=== PATIENT | female | born 1995 | race Caucasian/White ===

== ENCOUNTER → 2023-08-10 17:29 | Outpatient (REF) | payer BC, SELFPAY | LOC: PNTC 17:29 | PROVIDERS: ATTENDING PHYSICIAN Obstetrics & Gynecology | DX: O99.210 Obesity complicating pregnancy, unspecified trimester (principal) | CPT/HCPCS: 76805 ==

== ENCOUNTER → 2023-09-09 15:24 | Outpatient (REF) | payer BC, SELFPAY | LOC: PNTC 15:24 | PROVIDERS: ATTENDING PHYSICIAN Obstetrics & Gynecology | DX: O99.210 Obesity complicating pregnancy, unspecified trimester (principal) | CPT/HCPCS: 76811 ==

== ENCOUNTER → 2023-10-21 16:06 | Outpatient (REF) | payer BC, SELFPAY | LOC: PNTC 16:06 | PROVIDERS: ATTENDING PHYSICIAN Obstetrics & Gynecology | DX: O99.210 Obesity complicating pregnancy, unspecified trimester (principal) | CPT/HCPCS: 76816 ==

== ENCOUNTER → 2023-11-09 08:23 | Outpatient (REF) | payer BC, SELFPAY ==
--- NOTE | 2023-11-09 09:33 | PN.DIAED06 ---
Meal Plan - Gestational
- Breakfast
Gestational Diabetes Meal Plan Name: 1800 calories
Breakfast - Total Carbohydrate (grams): 30
Breakfast - Starch Carbohydrate: 1
Breakfast - Fruit Carbohydrate: 0
Breakfast - Milk Carbohydrate: 1
Breakfast - Nonstarchy Vegetables: Yes
Breakfast - Meat/Protein: 1
Breakfast - Fat: 2
- Morning Snack
Morning Snack - Total Carbohydrate (grams): 30
Morning Snack - Starch Carbohydrate: 1
Morning Snack - Fruit Carbohydrate: 0
Morning Snack - Milk Carbohydrate: 1
Morning Snack - Nonstarchy Vegetables: Yes
Morning Snack - Meat/Protein: 0.5
Morning Snack - Fat: 0
- Lunch
Lunch - Total Carbohydrate (grams): 45
Lunch - Starch Carbohydrate: 2
Lunch - Fruit Carbohydrate: 1
Lunch - Milk Carbohydrate: 0
Lunch - Nonstarchy Vegetables: Yes
Lunch - Meat/Protein: 2
Lunch - Fat: 1
- Afternoon Snack
Afternoon Snack - Total Carbohydrate (grams): 30
Afternoon Snack - Starch Carbohydrate: 1
Afternoon Snack - Fruit Carbohydrate: 1
Afternoon Snack - Milk Carbohydrate: 0
Afternoon Snack - Nonstarchy Vegetables: Yes
Afternoon Snack - Meat/Protein: 1
Afternoon Snack - Fat: 0
- Dinner
Dinner - Total Carbohydrate (grams): 45
Dinner - Starch Carbohydrate: 2
Dinner - Fruit Carbohydrate: 0
Dinner - Milk Carbohydrate: 1
Dinner - Nonstarchy Vegetables: Yes
Dinner - Meat/Protein: 2
Dinner - Fat: 2
- Evening Snack
Evening Snack - Total Carbohydrate (grams): 30
Evening Snack - Starch Carbohydrate: 1
Evening Snack - Fruit Carbohydrate: 0
Evening Snack - Milk Carbohydrate: 1
Evening Snack - Nonstarchy Vegetables: Yes
Evening Snack - Meat/Protein: 1
Evening Snack - Fat: 1
--- NOTE | 2023-11-12 08:45 | PN.DIAED02 ---
Referral
Referred For: Gestational Diabetes Self-Management Training
PHI Release Authorization Form Signed: Yes
Care Plan
- Education Needs
Patient Education Needs: Preconception care//gestational diabetes management
Recommended Diabetes Training Program based on assessment: Gestational Diabetes Management
- Plan of Care
Plan of Care:
11/09/23- Met with Nathalie for new diagnosis GDM. EDC [birth year] male, 18 mo. son at home. Discussed what is happening in her body and importance to monitor BS, eat healthy and increase activity. Provided with and instructions given on Contour NExt Gen
glucometer, excellent return demonstration with result of 81 mg/dl 1 hr post B of 1 slice wheat toast w/PB, yogurt,and 2 chicken sausage. Aware to test FBS and 2 hr PP as well as expected results: FBS <95 mg/dl and 2 hr pp <120 mg/dl. Log sheet
provided for her to record her results. She is aware to call Mariajose at [facility] every Wednesday with readings. Aware if checking 1 hr pp, result should be <140 mg/dl and to noemy that on the log sheet. She does have Mariajose's phone number.
Briefly discussed possibility of insulin as develops. Discussed macronutrients, CHO, protein and fat and impact each has on BS. Reviewed reading food labels and importance of consuming proper serving sizes. 5'4', 180# (pre ).
Provided with 1800 kelle ADA GDM meal plan and reviewed current eating preferences. To consume protein with each meal and snack, handout of options provided. 'Choose your Foods' booklet given and referenced. She does not currently engage in exercise,
states very active in day to day with her toddler. RX for test strips and lancets placed by REBA Beyer at [facility]. Phone number provided for follow up questions.
== END ==
LOC: DES 08:23
PROVIDERS: ATTENDING PHYSICIAN Obstetrics & Gynecology
DX: O24.419 Gestational diabetes mellitus in pregnancy, unspecified control (principal)
CPT/HCPCS: 99078

== ENCOUNTER → 2023-11-30 15:00 | Outpatient (REF) | payer BC, SELFPAY | LOC: PNTC 15:00 | PROVIDERS: ATTENDING PHYSICIAN Obstetrics & Gynecology | DX: O99.210 Obesity complicating pregnancy, unspecified trimester (principal) | CPT/HCPCS: 76816 ==

== ENCOUNTER 2023-12-21 16:33 | Emergency (ER) | payer BC, SELFPAY ==
[2023-12-21 16:35] VITALS: BP 113/89
[2023-12-21 16:56] VITALS: BP 125/73
[2023-12-21 17:00] VITALS: BP 113/67
[2023-12-21 17:35] VITALS: BMI 34.6
--- NOTE | 2023-12-21 17:40 | EDRN ---
Received patient on stretcher with c/o palpitations. Patient is 35 weeks . Denies dizziness and chest pain. Patient stated that the baby is moving constantly.
[2023-12-21 18:00] VITALS: BP 112/57
--- NOTE | 2023-12-21 18:02 | ED.GENMED ---
History of Present Illness
General
Chief Complaint: Heart Rate Problem
Source: patient
Exam Limitations: none
Time Seen by Provider: 12/21/23 17:31
Nursing documentation reviewed up to this point in time: agreed with
Travel History
Have you had any contact with someone who has COVID-19?: No
Do you have any symptoms of coronavirus? Fever > 100 degrees, chills, cough, shortness of breath, sore throat, loss of taste or smell, muscle aches, or headache?: No
History of Present Illness
History of Present Illness:
28 yr old female approx 35 wks with an estimated due date of January 24 presents to the ER complaining of palpitations. Patient reports she has had constant fluttering/palpitation feeling in her chest since Wednesday. She always feels that her
heart is skipping a beat. She denies real shortness of breath with it. She denies any vaginal bleeding / cramping. She reports normal movements.
Review of Systems
Review of Systems
Allergies reviewed?: Yes
All Other Systems: ROS reviewed and negative except as documented in HPI and ROS
Constitutional: Reports no symptoms; Denies fever, fatigue or chills
EENT: Reports no symptoms
Respiratory: Denies trouble breathing
Cardiac: Reports palpitations; Denies chest pain, diaphoresis or syncope
ABD/GI: Reports no symptoms
: Reports no symptoms
Musculoskeletal: Reports no symptoms
Skin: Reports no symptoms
Neurological: Reports no symptoms
Psychiatric: Reports no symptoms
Phy Exam
General Physical Exam
General Presentation: no apparent distress
General age: appears stated age
General Skin: warm and dry
General Habitus: normal
General Mental: alert
General Hydration: appears well hydrated
Cardiovascular Exam
Cardiovascular Exam: tachycardia
Pulmonary Exam
Pulmonary Exam: lungs clear and no respiratory distress
Neurological Exam
Neurological Exam: alert and oriented x3
Musculoskeletal Exam
Musculoskeletal Exam: full ROM
Skin Exam
Skin Exam: normal color and warm/dry
Psychiatric Exam
Psychiatric Exam: normal mood/affect
Course
Orders/Labs/Results
Orders:
Orders
12/21/23 16:39
Electrocardiogram (*1) Urgent
Reason for Study: Chest Pain
EKG- Treatment ONCE
12/21/23 18:07
CMP [Comprehensive Metabolic Panel] Urgent
Complete Blood Count/With Diff Urgent
TSH Reflex To Free T4 Urgent
Comment: ADD ON
12/21/23 18:10
0.9% Sodium Chloride 1000 ml [Nss] 1,000 ml IV BOLUS
12/21/23 18:30
Heart Tones ONCE
12/21/23 19:20
Add On- LAB Urgent
Tests Added?: tsh with reflexive t4
Abnormal Lab Results
12/21/23
18:07
WBC 12.8 H 10^3/uL
(4.8-10.8)
Hct 36.8 L %
(37.0-47.0)
Abs Immat Gran (auto) 0.1 H 10^3/uL
(0-0.05)
Absolute Neuts (auto) 9.4 H 10^3/uL
(1.4-6.5)
Absolute Monos (auto) 1.0 H 10^3/uL
(0.1-0.6)
Immature Gran % 0.7 H %
(0-0.5)
Lymphocytes % 17.3 L %
(20.5-51.1)
Chloride 108 H mmol/L
(98-107)
Carbon Dioxide 20 L mmol/L
(22-30)
Creatinine 0.5 L mg/dL
(0.6-1.0)
Total Protein 6.2 L g/dl
(6.3-8.2)
Albumin 3.4 L g/dl
(3.5-5.0)
12/21/23 18:07
12/21/23 18:07
Vital Signs
Initial and Last Documented VS:
Initial Vital Signs
Temp Pulse Resp BP Pulse Ox
98.5 F 102 20 113/89 98
12/21/23 16:35 12/21/23 16:35 12/21/23 16:35 12/21/23 16:35 12/21/23 16:35
Last Documented Vital Signs
Temp Pulse Resp BP Pulse Ox
98.5 F 99 22 112/57 98
12/21/23 16:35 12/21/23 18:00 12/21/23 18:00 12/21/23 18:00 12/21/23 18:59
Debate Director consulted with Physician
Debate Director consulted with physician?: Yes
Name of Physician Consulted: Dr Corado
MDM/Problems Addressed
Differential Diagnosis Includes:
Not limited to : palpitations dehydration arrhythmia
MDM/Problems Addressed:
Patient is 35 weeks presents for palpitations, fluttering sensation. Patient is having PACs on the monitor and is symptomatic however in no acute distress. No shortness of breath no chest pain mildly tachycardic which is normal .
Patient's white count mildly elevated also normal in she denies any recent illness fever chills. She does drink 1 cup of coffee a day I did advise her to stop this or switch to decaf coffee as did not worsen symptoms. She has to
follow-up with her INFORMATION SYSTEMS CONSULTANT and return if any worsening of symptoms.
*Critical Care Note
Total Time (30-74mins, 75-104mins- exclusive of procedures): Not Applicable
ED Attending Note
-
Portions of this chart may have been created with voice recognition software.� Occasional wrong word or��sound alike� substitutions may have occurred due to the inherent limitations of voice recognition software.
Discharge Plan
Departure
Patient Disposition: Home (Routine Discharge)
Date of Disposition: 12/21/23
Time of Disposition: 19:21
Patient with high blood pressure during this ER visit?: No
Condition: Fair
Covid-19: Not Applicable
Discharge Problem:
Palpitations, PAC (premature atrial contraction)
Instructions: Palpitations (DC)
Prescriptions:
No Action
prenat.vits,kelle,nat-hpwp-yqmen Tablet
1 tab PO DAILY
(DME) Contour Next Test Strips Strip
Qty: 240 0RF
Rx Instructions:
Pt Testing 4 times a day
(DME) lancets [Microlet Lancet] Misc
Qty: 240 0RF
Rx Instructions:
Pt testing 4 times a day
aspirin [Baby Aspirin] 81 mg Tablet,Chewable
81 mg PO DAILY
Referrals:
Enoc Daniels MD [Family Provider] -
Activity Restrictions/Additional Instructions:
As discussed stay well-hydrated and avoid caffeine. Follow-up with your INFORMATION SYSTEMS CONSULTANT in the next few days for reevaluation return if any worsening of symptoms.
Interventions
Interventions:
*Risk Screen - Suicide Last Done: 12/21/23 16:35
*General Assessment Last Done: 12/21/23 16:35
*Neglect/Abuse Screening Last Done: 12/21/23 16:35
ED- Fall Risk Assessment Last Done: 12/21/23 17:35
*ED COVID-19 Vaccine History Last Done: 12/21/23 19:03
ED- Cardiac Assessment Last Done: 12/21/23 19:01
ED- Pulmonary Assessment Last Done: 12/21/23 19:01
Discharge Date and Time
Print Language: SERBIAN
[2023-12-21] MEDS: NSS 1000 IV (18:10)
[2023-12-21 18:15] LABS: % Basophils 0.2 % (0-2); % Eosinophils 0.3 % (0-6); % Immature Granulocytes 0.7 % (0-0.5); % Lymphocytes 17.3 % (20.5-51.1); % Monocytes 7.7 % (1.7-9.3); % Neutrophils 73.8 % (42.2-75.2); Absolute Immature Granulocytes 0.1 10^3/uL (0-0.05); Absolute Lymphocytes 2.2 10^3/uL (1.2-3.4); Absolute Neutrophils 9.4 10^3/uL (1.4-6.5); Hematocrit 36.8 % (37.0-47.0); Hemoglobin 12.7 g/dL (12.0-16.0); Mean Corp Hgb Conc. 34.5 g/dL (33.0-37.0); Mean Corpuscular Hgb 28.8 pg (27.0-31.0); Mean Corpuscular Volume 83.4 fL (81.0-99.0); Mean Platelet Volume 10.4 fL (7.4-10.4); Nucleated Red Blood Cells % 0 %; Platelet Count 249 10^3/uL (130-400); Red Blood Cell Count 4.41 10^6/uL (4.20-5.40); Red Cell Dist. Width 13.4 % (11.5-14.5); White Blood Cell Count 12.8 10^3/uL (4.8-10.8)
[2023-12-21 18:28] LABS: ALT (SGPT) 16 U/L (0-35); AST (SGOT) 23 U/L (14-36); Albumin 3.4 g/dl (3.5-5.0); Alkaline Phosphatase 109 U/L (38-126); Blood Urea Nitrogen 8 mg/dl (7-17); Calcium 9.7 mg/dl (8.4-10.2); Carbon Dioxide 20 mmol/L (22-30); Chloride 108 mmol/L (98-107); Estimated Creatinine Clearance > 125 ml/min; Glucose 86 mg/dl (70-99); Potassium 3.6 mmol/L (3.5-5.1); Sodium 135 mmol/L (135-145); Total Bilirubin 0.3 mg/dl (0.2-1.3); Total Protein 6.2 g/dl (6.3-8.2); eGFR > 60.00
[2023-12-21 18:50] VITALS: BP 109/71
[2023-12-21 19:00] VITALS: BP 118/73
[2023-12-21 20:03] LABS: Urine Albumin Negative (Neg - Trace); Urine Bilirubin Negative (Negative); Urine Character Clear (Clear); Urine Color Yellow; Urine Glucose Negative (Negative); Urine Ketone 2+ (Negative); Urine Leukocyte Negative (Negative); Urine Nitrite Negative (Negative); Urine Occult Blood Negative (Negative); Urine Urobilinogen Negative (Neg - 1+)
[2023-12-21 20:35] LABS: TSH Reflex To Free T4 1.27 uIU/ml (0.47-4.68)
== END 2023-12-21 20:04 | disposition home or self-care (01) ==
LOC: EMR 16:33
PROVIDERS: Nurse Practitioner; EMERGENCY PHYSICIAN Emergency Medicine; FAMILY PHYSICIAN Internal Medicine
DX: O26.893 Other specified pregnancy related conditions, third trimester (principal); R00.2 Palpitations; I49.1 Atrial premature depolarization; Z3A.35 35 weeks gestation of pregnancy
CPT/HCPCS: 99284; 96360; 80053; 81003; 84443; 85025; 93005

== ENCOUNTER → 2023-12-28 16:24 | Outpatient (REF) | payer BC, SELFPAY | LOC: PNTC 16:24 | PROVIDERS: ATTENDING PHYSICIAN Obstetrics & Gynecology | DX: O24.419 Gestational diabetes mellitus in pregnancy, unspecified control (principal); O99.210 Obesity complicating pregnancy, unspecified trimester; Z34.90 Encounter for supervision of normal pregnancy, unspecified, unspecified trimester | CPT/HCPCS: 76816 ==

== ENCOUNTER 2024-01-24 06:58 | Inpatient (IN) | payer BC, SELFPAY ==
[2024-01-24 07:25] VITALS: BP 127/81; BMI 34.7
[2024-01-24 07:46] LABS: Glucose - Point of Care 98 mg/dl (70-99)
[2024-01-24] MEDS: TUMS EX (EXTRA STRENGTH) CHEWABLE 2 TABLET PO (09:36)
[2024-01-24] MEDS: CYTOTEC 25 MICROGRAM VAG (10:17)
[2024-01-24 11:15] LABS: % Basophils 0.4 % (0-2); % Eosinophils 0.5 % (0-6); % Immature Granulocytes 0.5 % (0-0.5); % Lymphocytes 19.4 % (20.5-51.1); % Neutrophils 71.2 % (42.2-75.2); Absolute Eosinophils 0.1 10^3/uL (0-0.7); Absolute Immature Granulocytes 0.1 10^3/uL (0-0.05); Absolute Lymphocytes 2.2 10^3/uL (1.2-3.4); Absolute Monocytes 0.9 10^3/uL (0.1-0.6); Hematocrit 36.4 % (37.0-47.0); Hemoglobin 12.6 g/dL (12.0-16.0); Mean Corp Hgb Conc. 34.6 g/dL (33.0-37.0); Mean Corpuscular Hgb 29.3 pg (27.0-31.0); Mean Corpuscular Volume 84.7 fL (81.0-99.0); Mean Platelet Volume 11.5 fL (7.4-10.4); Nucleated Red Blood Cells % 0 %; Platelet Count 207 10^3/uL (130-400); Red Cell Dist. Width 14.4 % (11.5-14.5); White Blood Cell Count 11.2 10^3/uL (4.8-10.8)
[2024-01-24 11:51] LABS: Glucose - Point of Care 77 mg/dl (70-99)
[2024-01-24] MEDS: CYTOTEC 50 MICROGRAM PO (14:04)
[2024-01-24 16:06] LABS: Glucose - Point of Care 91 mg/dl (70-99)
[2024-01-24] MEDS: CYTOTEC PO (18:27)
[2024-01-24] MEDS: LR 1000 IV (18:49)
[2024-01-24] MEDS: PITOCIN 30 UNITS/NSS 500 ML IV (18:49)
[2024-01-24] MEDS: PENICILLIN 110 UNITS IV (19:05)
[2024-01-24 20:06] LABS: Glucose - Point of Care 110 mg/dl (70-99)
[2024-01-24] MEDS: PENICILLIN 55 UNITS IV (23:01)
[2024-01-25 00:02] LABS: Glucose - Point of Care 72 mg/dl (70-99)
[2024-01-25] MEDS: LR 1000 IV (01:58)
[2024-01-25] MEDS: PENICILLIN 55 UNITS IV ×4 (03:08→14:59)
[2024-01-25 04:07] LABS: Glucose - Point of Care 77 mg/dl (70-99)
[2024-01-25] MEDS: TUMS EX (EXTRA STRENGTH) CHEWABLE 2 TABLET PO (07:45)
[2024-01-25 08:07] LABS: Glucose - Point of Care 78 mg/dl (70-99)
[2024-01-25] MEDS: SUBLIMAZE 100 MCG EPIDURAL (12:03)
[2024-01-25] MEDS: FENTANYL/BUPIVACAINE 100 EPIDURAL (12:04)
[2024-01-25 12:07] LABS: Glucose - Point of Care 84 mg/dl (70-99)
[2024-01-25 16:37] LABS: Glucose - Point of Care 59 mg/dl (70-99)
[2024-01-25] MEDS: PITOCIN 30 UNITS/NSS 500 ML IV (17:28)
[2024-01-25] MEDS: METHERGINE INJECTION 0.2 MG IM (18:45)
[2024-01-25] MEDS: TRANEXAMIC ACID 100 IV (19:19)
[2024-01-25] MEDS: TUMS 2 TABLET PO (19:51)
[2024-01-25] MEDS: TYLENOL 650 MG PO (22:06)
--- NOTE | 2024-01-26 03:34 | DOWNTIME ---
There was a [employer] Client Dance Historian Downtime on 01/26/2024 from 0100 to 01/26/2024 at 0255. Downtime documentation of patient's care, including medication administrations, has been reconciled in the electronic record per guidelines. Refer to the
patient's paper chart under the miscellaneous tab to see printed paper medication records and downtime forms.
[2024-01-26] MEDS: TYLENOL 650 MG PO ×4 (04:24→20:33)
[2024-01-26 05:51] LABS: Hematocrit 26.2 % (37.0-47.0); Hemoglobin 9.3 g/dL (12.0-16.0)
[2024-01-26] MEDS: PRENATAL PLUS 1 TABLET PO (07:52)
[2024-01-26] MEDS: SENOKOT-S 1 TABLET PO (07:52)
[2024-01-26] MEDS: MOTRIN 600 MG PO ×2 (11:25→20:32)
[2024-01-26] MEDS: FEOSOL 325 MG PO (13:39)
[2024-01-26] MEDS: CYTOTEC PO ×3 (19:39→19:41)
[2024-01-27] MEDS: TYLENOL 650 MG PO ×2 (04:03→08:45)
[2024-01-27] MEDS: MOTRIN 600 MG PO ×2 (04:03→11:20)
[2024-01-27] MEDS: FEOSOL 325 MG PO (08:14)
[2024-01-27] MEDS: PRENATAL PLUS 1 TABLET PO (08:15)
[2024-01-27] MEDS: SENOKOT-S 1 TABLET PO (08:45)
[2024-01-27 12:55] LABS: Syphilis/T. pallidum Ab Reflex Negative (Negative)
== END 2024-01-27 13:53 | disposition home or self-care (01) | DRG 807 ==
LOC: LDRP 06:58
PROVIDERS: Obstetrics & Gynecology; ADMITTING PHYSICIAN Obstetrics & Gynecology
PROC: 10907ZC Drainage of Amniotic Fluid, Therapeutic from Products of Conception, Via Natural or Artificial Opening (ICD-10-PCS; 2024-01-25)
PROC: 10E0XZZ Delivery of Products of Conception, External Approach (ICD-10-PCS; 2024-01-26)
PROC: 0HQ9XZZ Repair Perineum Skin, External Approach (ICD-10-PCS; 2024-01-26)
DX: O24.420 Gestational diabetes mellitus in childbirth, diet controlled (principal); Z37.0 Single live birth; O99.824 Streptococcus B carrier state complicating childbirth; O43.113 Circumvallate placenta, third trimester; O69.81X0 Labor and delivery complicated by cord around neck, without compression, not applicable or unspecified; O70.0 First degree perineal laceration during delivery; Z3A.39 39 weeks gestation of pregnancy
CPT/HCPCS: 36415; 82962; 85014; 85018; 85025; 86780; 86850; 86900; 86901